=== PATIENT | male | born 2000 | race Caucasian/White ===

== ENCOUNTER 2023-01-03 19:18 | Emergency (ER) | payer BC ==
[2023-01-03 19:45] VITALS: BP 136/67; PULSE 95; O2SAT 96
[2023-01-03] MEDS ORDERED: Adacel Vial IM ONE ×2 (19:47→19:49)
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
== END 2023-01-03 20:21 | disposition home or self-care (01) ==
LOC: ED 19:18
DX: S01.81XA Laceration without foreign body of other part of head, initial encounter (principal); V58.5XXA Driver of pick-up truck or van injured in noncollision transport accident in traffic accident, initial encounter
CPT/HCPCS: 12001; 90471; 90715; 99285